=== PATIENT | female | born 1990 | race Caucasian/White ===

== ENCOUNTER 2017-02-07 20:29 | Emergency (ER) | payer OTHER ==
[~2017-02-07] VITALS: Ht 157.5 cm; Wt 62.1 kg
[2017-02-07] MEDS ORDERED: JUNEL 1 MG-201 EACH PO (20:37)
--- NOTE | 2017-02-07 20:50 | ED THROAT/DENTAL COMPLAINT ---
History of Present Illness General Chief Complaint: General Adult Stated Complaint: DEEPTHI CHOCKED ON FOOD Source: patient Exam Limitations: no limitations Vital Signs & Intake/Output Vital Signs & Intake/Output Vital Signs Date Time Temp Pulse Resp B/P B/P Pulse O2 O2 Flow FiO2 Mean Ox Delivery Rate 02/07 2201 98.9 76 18 128/78 97 Room Air 02/08 2032 99.0 88 16 135/85 98 Room Air Allergies Coded Allergies: No Known Allergies (02/07/17) Reconcile Medications Norethindrone AC-Eth Estradiol (Junel 1 MG-20 Mcg Tablet) 1 MG-20 MCG TABLET 1 TAB PO DAILY CONTROL (Reported) Omeprazole 40 MG CAPSULE. 1 CAP PO DAILY gastritis Triage Note: PT BIBA FROM HOME. PER EMS, PT WAS HAVING DINNER WHEN HER AIRWAY BECAME OBSTRUCTED BY STEAK. [place] MANUEVER WAS PERFORMED BY FAMILY MEMBER IN WHICH PT WAS ABLE TO EXPEL BROCCOLI. PT ARRIVES TO ED ALERT AND ORIENTED. NO RESP DISTRESS NOTED. O2 SAT 98% ON RA. NO DIFFICULTIES WITH SPEECH. PT STATES SHE FEELS THOUGH THERE IS STEAK STILL STUCK. PT ALSO HAS HISTORY OF ACID REFLUX. Triage Nurses Notes Reviewed? yes Onset: Abrupt Duration: minute(s): (45), constant Timing: single episode today Injury Environment: home No Modifying Factors: none : No Patient currently breastfeeds: No HPI: 26-year-old female comes into emergency room because she reports that her food got stuck when she was eating a tonight at dinner. Patient reports this in the past that she's had some difficulty with swallowing from time to time but it always goes down with water. Tonight she reports that she was eating a piece of steak and it stuck and it won't go down. She tried drinking some water but was gagging. She vomited up a small piece of broccoli but reports the steak is still stuck. History of acid reflux in the past. Patient has never seen a quill buncher and sorter. Denies any other associated symptoms. Past History Travel History Traveled to [place] past 21 day No Medical History Any Pertinent Medical History? see below for history Neurological: NONE EENT: NONE Cardiovascular: NONE Respiratory: NONE Gastrointestinal: ACID REFLUX Hepatic: NONE Renal: NONE Musculoskeletal: NONE Psychiatric: NONE Endocrine: NONE Blood Disorders: NONE Cancer(s): NONE Surgical History Surgical History: non-contributory Psychosocial History What is your primary language Khmer Tobacco Use: Never used Family History Hx Contributory? No Review of Systems Review of Systems Constitutional: Reports: no symptoms. EENTM: Reports: no symptoms. Respiratory: Reports: no symptoms. Cardiovascular: Reports: no symptoms. GI: Reports: see HPI. Genitourinary: Reports: no symptoms. Musculoskeletal: Reports: no symptoms. Skin: Reports: no symptoms. Neurological/Psychological: Reports: no symptoms. Hematologic/Endocrine: Reports: no symptoms. Immunologic/Allergic: Reports: no symptoms. All Other Systems: Reviewed and Negative Physical Exam Physical Exam General Appearance: well developed/nourished, alert, awake, mild distress Head: atraumatic Eyes: Bilateral: normal appearance. Ears: Bilateral: canal normal. Nose: normal inspection Mouth/Throat: normal mouth inspection Neck: normal inspection Cardiovascular/Respiratory: no respiratory distress Back: normal range of motion Neurologic/Psych: awake, alert, oriented x 3 Skin: intact, normal color Core Measures ACS in differential dx? No Severe Sepsis Present: No Septic Shock Present: No Progress Differential Diagnosis: aspirated tooth, carious tooth, epiglottitis, Ludwigs angina, meningitis, odontogenic abscess, priti-tonsillar abscess, pharyngeal for. body, stomatitis/gingivitis, strep pharyngitis, tooth fracture, esophogeal food impaction Plan of Care: Orders Procedure Date/time Status Telemetry/Insulation Estimator 02/07 2051 Active Departure Departure Disposition: HOME OR SELF CARE Condition: Stable Clinical Impression Primary Impression: Esophageal obstruction due to food impaction Referrals: JOHNNY AWAN,NICHOLAS Gibson (PCP/Family) MELODY AWAN,JOCELYNE Childs Additional Instructions: Take omeprazole as prescribed. Follow-up with quill buncher and sorter provided. Soft foods for the next 48 hours. Return if any concerns worsening symptoms. Please go over all results of today's visit with your primary care doctor. Contact your primary care doctor to let them know you were here in the emergency room. There may be nonspecific findings which may not be related to your visit today here in the emergency room but may require further evaluation and chronic monitoring by your primary care doctor. If you had a laceration today the chance of foreign body always remains. You should follow-up with your primary care doctor for recheck in 3-5 days for a wound check. If you had an x-ray done there is a chance that a fracture could have been missed on initial read and you should follow-up with your primary care doctor for repeat x-rays if symptoms persist. If your blood pressure was elevated here in the emergency room please have rechecked by her primary care doctor within the next 48 hours by your primary care doctor. If you were prescribed a narcotic here in the emergency room or any type of controlled substances you're not allowed to drive while taking this medication or operate any type of heavy machinery. Narcotics can make you feel lightheaded dizziness nausea and can cause constipation. You may need to pickle cutter a stool softener. Thank you for choosing [facility] emergency room. Please return to the emergency room immediately if you have any other concerns worsening of symptoms. Departure Forms: Customer Survey General Discharge Information Prescriptions: Current Visit Scripts Omeprazole 1 CAP PO DAILY #30 CAP Comments 02/07/2017 10:32:32 PM Patient was given IV glucagon. Dr. Chakraborty consulted. recommedned 1 nitroglycerin as well as Ativan had been ordered but the patient reported that her symptoms had resolved after the glucagon and she was feeling fine. She was able to drink water with no difficulty. She is completely asymptomatic at this time and wants to go home. Patient was started on a proton pump inhibitor. Patient was instructed to do soft foods for next 48 hours and follow-up with GI doctor. She clinically looks well upon reevaluation and is in no longer any type of distress. Patient be discharged with GI follow-up.
[2017-02-07] MEDS ORDERED: OMEPRAZOLE40 M1 PO (21:43)
[2017-02-07 22:01] VITALS: BP 128/78
== END 2017-02-07 22:00 ==
LOC: ERH 20:29
DX: T18.108A Unspecified foreign body in esophagus causing other injury, initial encounter (principal)
CPT/HCPCS: 96374; J1610